=== PATIENT | male | born 1975 | race Caucasian/White ===

== ENCOUNTER 2023-10-21 21:44 | Inpatient (IN) | payer SELFPAY ==
[2023-10-21 23:34] LABS: #Basophils 0.1 thou/uL (0.0-0.2); #Eosinphils 0.1 thou/uL (0.0-0.7); #Neutrophils 9.9 thou/uL (1.40-6.50); %Basophils 0.7 % (0.0-1.0); %Eosinophils 0.9 % (0.0-10.0); %Lymphocytes 18.3 % (21.0-51.0); %Monocytes 7.4 % (0.0-10.0); %Neutrophils 72.3 % (42.0-75.0); Hematocrit 41.3 % (42.0-52.0); Hemoglobin 14.6 g/dL (14.0-18.0); Mean Corpuscular HGB CONC 35.4 g/dL (32.0-36.0); Mean Corpuscular Hemoglobin 31.4 pg (27.0-31.0); Mean Corpuscular Volume 88.8 fl (78.0-98.0); Mean Platelet Volume 10.2 fL (7.4-10.4); Platelet Count 395 10x3/uL (130-400); RBC Distribution Width 12.1 % (11.5-14.5); Red Blood Cell (RBC) Count 4.65 mill/uL (4.70-6.10); White Blood Cell (WBC) Count 13.7 10x3/uL (4.8-10.8)
[2023-10-21 23:47] LABS: INR-International Normal Ratio 1.1; PTT 27.5 sec (22.9-36.1); Prothrombin Time 13.7 sec (12.0-14.7)
[2023-10-21 23:55] LABS: Bacteria/HPF None Seen HPF (None Seen); Bilirubin Negative (Negative); Blood, Urine Negative (Negative); CAUTI Indications for Culture Pelvic or flank pain; Clarity Clear (Clear); Glucose, Urine (Dipstick) Normal (Negative); Ketone, Urine Negative (Negative); Leukocyte Negative Leu/uL (Negative); Nitrite Negative (Negative); Protein, Urine (Dipstick) Negative (Neg-Trace); RBC/HPF None Seen HPF (0-3); Specific Gravity, Urine 1.048 (1.002-1.036); Squamous Epithelial None Seen HPF (0-3); Urobilinogen Normal mg/dL (Less than 2); WBC/HPF 0-3 HPF (0-3)
[2023-10-22 00:05] LABS: ALT (SGPT) 361 U/L (8-55); AST (SGOT) 301 U/L (5-34); Albumin 3.9 g/dL (3.5-5.0); Alkaline Phosphatase 216 U/L (40-110); Anion Gap 12 mmol/L (10-20); BUN (Urea Nitrogen) 15 mg/dL (8.9-20.6); Bilirubin, Total 0.8 mg/dL (0.2-1.2); CK (CPK) 145 U/L (30-200); Calc. Creatinine Clearance 0 mL/min (70-130); Calcium 8.8 mg/dL (7.8-10.44); Carbon Dioxide 23 mmol/L (22-29); Chloride 107 mmol/L (98-107); Estimated GFR 68; Globulin 3.2 g/dL (2.4-3.5); Glucose 119 mg/dL (70-105); Potassium 4.2 mmol/L (3.5-5.1); Protein, Total 7.1 g/dL (6.0-8.3); Sodium 138 mmol/L (136-145)
[2023-10-22 00:09] LABS: Urine Culture Reflex No No
[2023-10-22 00:10] LABS: Lipase 6054 U/L (8-78)
[2023-10-22] MEDS ORDERED: Ondansetron PF 4 MG/2 ML Vial IVP PRN (00:29)
[2023-10-22] MEDS: Morphine 4 MG/ML VIAL SLOW IVP PRN (01:00)
[2023-10-22] MEDS: Sodium Chloride 0.9% 1,000 ML IV SCH (01:00)
[2023-10-22 01:17] VITALS: BMI 26.9
[2023-10-22 04:27] LABS: #Basophils 0.1 thou/uL (0.0-0.2); #Eosinphils 0.2 thou/uL (0.0-0.7); #Monocytes 0.9 thou/uL (0.11-0.59); #Neutrophils 7.8 thou/uL (1.40-6.50); %Basophils 0.9 % (0.0-1.0); %Eosinophils 1.9 % (0.0-10.0); %Lymphocytes 19.9 % (21.0-51.0); %Monocytes 8.2 % (0.0-10.0); %Neutrophils 68.8 % (42.0-75.0); Hematocrit 38.5 % (42.0-52.0); Hemoglobin 13.2 g/dL (14.0-18.0); Mean Corpuscular HGB CONC 34.3 g/dL (32.0-36.0); Mean Corpuscular Hemoglobin 30.3 pg (27.0-31.0); Mean Corpuscular Volume 88.5 fl (78.0-98.0); Mean Platelet Volume 10.4 fL (7.4-10.4); Platelet Count 367 10x3/uL (130-400); Red Blood Cell (RBC) Count 4.35 mill/uL (4.70-6.10); White Blood Cell (WBC) Count 11.3 10x3/uL (4.8-10.8)
[2023-10-22 05:00] LABS: ALT (SGPT) 301 U/L (8-55); AST (SGOT) 227 U/L (5-34); Albumin 3.3 g/dL (3.5-5.0); Alkaline Phosphatase 189 U/L (40-110); Anion Gap 10 mmol/L (10-20); BUN (Urea Nitrogen) 13 mg/dL (8.9-20.6); Bilirubin, Total 0.8 mg/dL (0.2-1.2); Calc. Creatinine Clearance 83 mL/min (70-130); Carbon Dioxide 22 mmol/L (22-29); Chloride 110 mmol/L (98-107); Estimated GFR 72; Globulin 2.8 g/dL (2.4-3.5); Glucose 107 mg/dL (70-105); Potassium 3.8 mmol/L (3.5-5.1); Protein, Total 6.1 g/dL (6.0-8.3); Sodium 138 mmol/L (136-145)
[2023-10-22] MEDS: Pantoprazole 40 MG VIAL IVP SCH (08:12)
[2023-10-22] MEDS ORDERED: EPINEPHrine 1 MG/ML VIAL ONE (09:53)
[2023-10-22] MEDS ORDERED: Iopamidol 30 ML ONE (09:53)
[2023-10-22] MEDS ORDERED: Glucagon 1 MG/ML KIT ONE (09:53)
[2023-10-22] MEDS ORDERED: Bupivacaine PF 0.5% 30 ML VIAL ONE (09:53)
[2023-10-22] MEDS ORDERED: PROPOFOL 20 ML ONE (10:04)
[2023-10-22] MEDS ORDERED: Lidocaine 2% PF 5 ML VIAL ONE (10:04)
[2023-10-22] MEDS ORDERED: fentaNYL PF 100 MCG/2 ML SYRINGE ONE (10:04)
[2023-10-22] MEDS ORDERED: Rocuronium Bromide 10 MG/ML (10ML VIAL) ONE (10:04)
[2023-10-22] MEDS ORDERED: Ondansetron PF 4 MG/2 ML Vial ONE (10:10)
[2023-10-22] MEDS ORDERED: Dexamethasone 4 mg/ml Vial ONE (10:10)
[2023-10-22] MEDS ORDERED: LevoFLOXacin D5W 500 mg (100 mL) BAG ONE (10:10)
[2023-10-22] MEDS ORDERED: SUGAMMADEX SODIUM 200 MG/2 ML VIAL ONE (10:10)
[2023-10-22] MEDS ORDERED: Ketorolac Tromethamine 30 MG (1 mL) VIAL ONE (10:37)
[2023-10-22] MEDS ORDERED: Ketorolac Tromethamine 30 MG (1 mL) VIAL IVP PRN (10:42)
[2023-10-22] MEDS ORDERED: ePHEDrine Sulfate 50 MG/10 ML VIAL ONE (10:44)
[2023-10-22] MEDS ORDERED: Meperidine HCl/PF 25 MG (1 mL) VIAL ONE (12:01)
[2023-10-22] MEDS ORDERED: fentaNYL 50 mcg/mL 1 mL Vial ONE (12:02)
[2023-10-22 12:44] VITALS: BP 145/76; TEMP 98.4
[2023-10-22] MEDS: 1/2 NS w/Potassium 20 mEq 1,000 ML IV SCH (12:52)
[2023-10-22] MEDS: Acetaminophen 500 MG TAB PO SCH (12:53)
[2023-10-22] MEDS: LevoFLOXacin 500 mg/D5W 500 MG in Premix 1 BAG IVPB SCH (12:53)
[2023-10-22] MEDS: traMADol HCl 50 MG TAB PO PRN (12:53)
== END 2023-10-22 17:15 | disposition home or self-care (01) | DRG 418 ==
LOC: ERS 21:44 → T4-A 23:50
PROVIDERS: ADMIT Internal Medicine; ATTEND Internal Medicine
PROC: 0FT44ZZ Resection of Gallbladder, Percutaneous Endoscopic Approach (ICD-10-PCS; principal; 2023-10-22)
PROC: BF101ZZ Fluoroscopy of Bile Ducts using Low Osmolar Contrast (ICD-10-PCS; 2023-10-22)
DX: K85.10 Biliary acute pancreatitis without necrosis or infection (principal); N17.9 Acute kidney failure, unspecified; G89.29 Other chronic pain; F17.210 Nicotine dependence, cigarettes, uncomplicated; K80.20 Calculus of gallbladder without cholecystitis without obstruction; Z87.820 Personal history of traumatic brain injury
CPT/HCPCS: 36415; 47532; 71045; 76705; 80053; 81001; 82550; 83690; 85025; 85610; 85730; 86850; 86900; 86901; 88304; 93005; C1889; C9113; J0171; J0665; J1100; J1611; J1885; J1956; J2001; J2175; J2270; J2405; J2704; J3010; J3480; J7050; Q9967